=== PATIENT | female | born 1930 | race Caucasian/White ===

== ENCOUNTER 2019-02-07 22:32 | Inpatient (IN) | payer OTHER ==
[~2019-02-07] VITALS: Ht 152.4 cm; Wt 59.5 kg
--- NOTE | 2019-02-08 01:24 | NUR ---
PT ADMITTED PER CART FROM [facility]. PT IS AMBULATORY WITH WALKER ASSIST. CALM AND COOPERATIVE BUT NAUSEATED AND SOME EMESIS. PT CLAIMED THAT THE RIDE MADE HER SICK. FAMILY HERE TO PROVIDE HX AND LIST OF MEDICATIONS. RECENT PROBLEM, IS THAT PT HAS BEEN MORE DEPRESSED AND IMPULSIVE. MEDICATION CHANGE FROM RECENT HOSPITALIZATION AT [facility],DID NOT IMPROVE HER DEPRESSION AND SI. RESIDES AT [facility], WHERE SHE WAS DISCOVERED ATTEMPTING TO JUMP OUT A WINDOW. PT DENIES THAT SHE IS CURRENTLY SUICIDAL, BUT ADMITS SHE HAS THOSE THOUGHTS. TOOK HS MEDS ORDERED AND IS CURRENTLY RESTING QUIETLY.
[2019-02-08] MEDS ORDERED: POTASSIUM GLUC500 MG PO (02:02)
[2019-02-08] MEDS ORDERED: ST. JOSEPH ASPI81 MG (02:06)
[2019-02-08] MEDS ORDERED: LEXAPRO20 MG (02:07)
[2019-02-08] MEDS ORDERED: ARICEPT10 M1 PO (02:07)
[2019-02-08] MEDS ORDERED: HYDROCHLOROTHIA25 M2 (02:08)
[2019-02-08] MEDS ORDERED: OSTEO BI-FLEX1 EAC4 (02:09)
[2019-02-08] MEDS ORDERED: SIMVASTATIN40 MG (02:10)
[2019-02-08] MEDS ORDERED: LOPERAMIDE2 MG (02:14)
[2019-02-08] MEDS ORDERED: CEPACOL SORE T1 EAC8 (02:15)
[2019-02-08] MEDS ORDERED: LORAZEPAM 0.50.5 MG PO (02:17)
[2019-02-08] MEDS ORDERED: BIOFREEZE118 ML TOP (02:18)
[2019-02-08] MEDS ORDERED: MELATONIN1 M1 (02:18)
--- NOTE | 2019-02-08 03:40 | NUR ---
PT HAS SLEPT WELL THROUGH THE NIGHT TO THIS POINT W/O PROBLEM
[2019-02-08 05:36] LABS: POTASSIUM 3.3 mmol/L (3.5-5.1)
[2019-02-08] MEDS ORDERED: CALCIUM ASCORB500 MG (06:32)
[2019-02-08] MEDS ORDERED: PROAIR HFA8.5 GM INH (06:34)
[2019-02-08] MEDS ORDERED: VITAMIN B-121000 MC2 SUBLING (06:38)
[2019-02-08 08:33] LABS: TSH 3.483 uIU/mL (0.358-3.740)
[2019-02-08 10:13] VITALS: BP 140/60
[2019-02-08 10:31] VITALS: BP 140/60
--- NOTE | 2019-02-08 10:55 | NUR ---
THE PATIENT WAS LYING IN BED THIS MORNING BUT WAS UP IN THE DAY ROOM FOR BREAKFAST. SHE WAS PLEASANT AND COOPERATIVE WITH THE [facility]. THE PATIENT WAS COMPLIANT WITH MEDICATIONS. SHE HAS BEEN QUIET AND CALM. SHE AMBULATES WITH A WALKER AND HAS BATH ROOM PRIVILEGES. THE PATIENT WENT BACK TO HER ROOM AFTER BREAKFAST AND WAS IN HER BED RESTING. SHE HAD A EKG THIS MORNING. BREATH SOUNDS WERE DIMINISHED. PATIENT IS WEAK. SHE IS ONE ASSIST. CONTINUE TO MONITOR.
--- NOTE | 2019-02-08 16:48 | EKG ---
[address] [place] [address] ELECTROCARDIOGRAM REPORT Name: KENNETH BABB Room #: [facility] ADM IN M.R.#: [id number] Admission: 02/07/19 Attend Phys: Dc Hernandez DO Discharge: Date of : [birth year] Report #: [id number] THIS REPORT FOR: //name// [facility] Test Date: 2019-02-08 Test Time: 09:56:32 Pat Name: KENNETH BABB Department: Room: [facility] Gender: F Catering Staff Member: JESSI : 1930 Requested By: Dc Hernandez Order Number: [id number] MD: Hamilton Baez Measurements Intervals [place] Rate: 73 P: 43 ND: 135 QRS: 45 QRSD: 84 T: 33 QT: 409 QTc: 451 Interpretive Statements Sinus rhythm No significant abnormality No previous ECG available for comparison Electronically Signed On 02-08-2019 16:48:20 SUPERVISOR AGENCY APPOINTMENTS by Hamilton Baez [email or web address] <ELECTRONICALLY SIGNED> By: Hamilton Baez MD, [facility] 02/08/19 [id number] [id number] Hamilton Baez MD, FACC /EPI
[2019-02-08 20:36] VITALS: BP 135/60
--- NOTE | 2019-02-09 02:27 | NUR ---
ASSUMED CARE OF PATIENT AT 1915, PATIENT IN BED DURING ONE TO ONE ASSESSMENT. SHE APPEARS WITH A BRIGHT AFFECT UPON GREETING PATIENT. SHE WAS OPEN WITH DISCUSSION. SHE DENIED SI HI AND ANY HALLUCINATIONS SHE DID NOT REPORT ANY DEPRESSION 'RIGHT NOW.' SHE DENIED MEDICAL CONCERNS WITH NO S/S OF DISTRESS. NURSING WILL MAINTAIN ALL PRECAUTIONS TO ENSURE SAFETY AT ALL TIMES.
--- NOTE | 2019-02-09 04:21 | NUR ---
PATIENT INCONTINENT X1 AT NIGHT, CHANGED AND CLEANED WITH TELECOMMUNICATIONS NETWORK PLANNER AND RN. PATIENT ABLE TO MAKE NEEDS KNOWN AND THAT SHE WAS COMFORTABLE.
[2019-02-09 07:45] VITALS: BP 179/68
[2019-02-09 08:01] VITALS: BP 179/68
--- NOTE | 2019-02-09 08:30 | NUR ---
PT IN DINNING ROOM AT THIS TIME. PT WANTING TO GO HOME. PT UP WITH WALKER WITH X1 ASSIST. PT GAIT STEADY WITH ASSIST. PT CONT. OF URINE, HAD BRIEF ON.
--- NOTE | 2019-02-09 14:22 | NUR ---
Yesterday, VAL had an impromptu meeting with pt's daughter Selena, and pt's son in law. Selena said she and her are pt's DPOA; she is pt's only child. She said a preciptant to much of her behavior is telling pt that her . Selena said pt will need a new facility due to her behaviors, and wanted assistance in doing so. VAL provided Selena with a Medicare listing of facilities in her area; she would like pt to reside in the [facility]. Selena said pt has been taking lorazepam for over 40 years. She said much of her adverse behaviors started after her Ativan was released by [facility]. They said overall she knows some impairment, but does not acknowledge it. She also knows her is , but can become upset if reminded of that factor. VAL team will continue to follow pt during her stay.
[2019-02-09 20:32] VITALS: BP 141/60
--- NOTE | 2019-02-09 22:03 | H ---
[facility] [address] [place] [address] HISTORY AND PHYSICAL Name: KENNETH BABB Room #: 527B-B ADM IN M.R.#: [id number] Admission: 02/07/19 Attend Phys: Dc Hernandez DO Discharge: Date of : [birth year] Report #: [id number] THIS REPORT FOR: //name// CC: Dc Hernandez [facility] physician/PCP DATE OF SERVICE: 02/07/2019 INPATIENT PSYCHIATRIC EVALUATION ATTENDING PHYSICIAN: Dc Hernandez DO. CODIFIER: Chayo Horan APRN. SOURCES OF INFORMATION: [facility] ER records, interview with the patient, discussion with Selena, the daughter. REASON FOR ADMISSION: Sent from her assisted living for reported self-harmful behavior, attempting to jump out of window. HISTORY OF PRESENT ILLNESS: An 88-year-old female just released from the [facility] last 02/04/2019. She returned to the [facility], where she reportedly threw herself on the floor "had seizure" recovered quickly. She became aggressive with staff stating "just kill me, I want to ." EMS was called. The patient was taken to [facility]. Additional information, her in August of this year. They live together at the assisted living facility, reportedly 7-year marriage. Both had been declining in health status. The facility moved them to a higher care floor level roughly a year ago. The patient reportedly has been attention seeking or even when her was alive. Since he , the aggressiveness and attention seeking has worsened. She was doing better when on Seroquel 25 mg b.i.d. and Ativan 1 mg t.i.d., then reportedly the doctors at [facility] reduced her to 25 mg daily and Ativan to 0.5 mg. The patient has a psychiatric history, cognitive impairment, anxiety, fictitious disorder. PAST MEDICAL HISTORY: Cardiovascular disease, lung disease, hypertension, arthritis, sleep issues. HOME MEDICATIONS: Potassium gluconate 550 mg daily, calcium 1200 mg daily with vitamin D, aspirin 81 mg p.o. daily, hydrochlorothiazide 25 mg p.o. daily, simvastatin 40 mg p.o. daily, Osteo Bi-Flex daily, donepezil 10 mg p.o. daily, escitalopram 20 mg p.o. daily, melatonin 1 mg p.o. at bedtime. MENTAL STATUS EXAMINATION: My student performed a [facility] Mental Status Examination, she scored a less than 10. [address] [address] HISTORY AND PHYSICAL Name: KENNETH BABB Room #: 527B-B [facility] IN M.R.#: [id number] Admission: 02/07/19 Attend Phys: Dc Hernandez DO Discharge: Date of : [birth year] Report #: [id number] Today, on mental status exam, she is a well-developed female wearing glasses, using a walker. Today, though, when I interviewed her at bedside, she was in bed. Apparently, she was more sleepy than usual. She stated her age was 81 and date was 04/13/1932, when in actuality she is 88 and her date of is 1930. Attention limited. Concentration limited. Speech is normal rate. Thought process is linear and goal directed. Thought content: Denies thoughts of suicide or kill herself; however, this contradicts opening the window in her room, pushing out the screen and ran to jump, stating "I want to ." Apparently, she has thought about dying before. Denied homicidal intent or plan. Memory impaired. Insight impaired. Judgment impaired. Fund of knowledge well below average. REVIEW OF SYSTEMS: From the hospitalist's notes: CONSTITUTIONAL: Denies fever or chills. HEENT: She has congestion. RESPIRATORY: Denies cough, orthopnea. CARDIOVASCULAR: Denies chest pain, edema. GASTROINTESTINAL: Denies abdominal pain, constipation. GENITOURINARY: No symptoms reported. MUSCULOSKELETAL: Denies back pain. SKIN: Denies rash. NEUROLOGIC AND PSYCHIATRIC: Denies weakness and dizziness. ENDOCRINE: Denies diabetes mellitus. HEMATOLOGIC AND LYMPHATIC: Denies anemia and blood clots. LABORATORY DATA: BMP was drawn in-house this morning. Sodium 140, potassium 3.3, chloride 102, bicarbonate 30, anion gap 8, BUN 16, creatinine 1.0, estimated GFR 52, glucose 123, calcium 9.0. She received 40 mEq of potassium chloride this morning. Information from her daughter is additional background history, diagnosis of dementia 2016. She recalls this going back 5 years. The daughter is the only child. The patient has been seen and was taken care of by Dr. Vyas at [facility]. FORMULATION: An 88-year-old female admitted for behavioral disturbance. Denying suicidal intent and plan. DIAGNOSES: Major neurocognitive disorder, likely secondary to Alzheimer's disease with behavioral disturbance, numerous comorbidities including hypertension, osteoarthritis, history of peripheral vascular disease namely 15 years ago, left femoral popliteal bypass and right stenting for a long plaque in a right iliac artery. PLAN: Evaluate, stabilize, obtain collateral. I reviewed medications with her [facility] [address] [place] [address] HISTORY AND PHYSICAL Name: KENNETH BABB Room #: 527B-B ADM IN Antoine.#: [id number] Admission: 02/07/19 Attend Phys: Dc Hernandez DO Discharge: Date of : [birth year] Report #: [id number] family. I will discontinue donepezil, change Seroquel to 50 mg twice a day. Continue atorvastatin for now, especially in light of her peripheral vascular disease. She is on vitamin D and multivitamin, Lexapro 10 mg p.o. daily. I believe, I reduced this from 20 mg daily. Vitamin B12 at 2500 mcg p.o. daily. I will go ahead and draw B12 level as she has a history, according to the family, pernicious anemia. Vitamin D 2000 International Units daily, aspirin 81 mg p.o. daily. Keflex 500 mg q. 12 hours, total of 13 doses and now urine culture pending at [facility]. Other routine PRNs, will continue memantine 10 mg p.o. b.i.d. Risk of antipsychotics including the increased risk of and stroke were reviewed. The possible deliriogenic effects of lorazepam were reviewed. STRENGTHS: She is insured, supportive family. WEAKNESSES: Advancing age, history of neurodegenerative disorder. ESTIMATED LENGTH OF STAY: 10-14 days. Time spent on this case is in the 60-minute range including a family meeting today with the daughter and son-in-law. <ELECTRONICALLY SIGNED> By: Dc Hernandez DO 02/09/19 2203 [id number] Dc Hernandez, /nt
--- NOTE | 2019-02-10 00:25 | NUR ---
1909 Report received from day shift nurse and care assumed. Victorina was cooperative with assessment and HS medications. She was notably anxious this evening. She had difficulty emptying her bladder, she wanted to use the toilet asking for help to urinate several times and little result. Bowel sounds active also. No c.o. bladder pain. Bladder scan done at 2320 and PVR = 540cc. Dr. Hernandez notified and ordered Bladder scan ashtyn 6 hours PVR and to straight cath.pt. if >350 cc. Also new order for DC of Seroquel and to start Senna S 2 tabs BID. Straigt cath procedure was done and 570 cc out. She tolerated it well. [facility] was called teodorodavina about finding of her Urine Analysis Culture which was started there 2 days ago from her ER visit. The lab said it is done but he could not provide result, and they would need to call Medical Records department tomorrow after 0700 to get the culture result. Victorina continued being restless with insomnia and was verbally hostile/shouting at staff when she called for help in her room, saying she had to urinate again and explained to her she was just recently straight cathed. Redirections were tried talking with her but she continued shouting for staff then being hostile demanding water to drink as well, due to dry mouth. She was provided water but she still remained verbally hostile with staff and very restless. called at 0030 and ordered Geodon 15 mg. IM x 1 now. Will monitor for effectiveness.
[2019-02-10 09:19] VITALS: BP 125/58
[2019-02-10 12:02] VITALS: BP 125/58
--- NOTE | 2019-02-10 12:09 | NUR ---
704 Report received from overnight shift, patient quiet cooperative. Patient did hygeine and ate breakfast took medication without incidence. Patient wanted to go back and lie down after breakfast. Dr Dempsey came and checked on the patient and stated she looked better then yesterday.
[2019-02-10 19:30] VITALS: BP 124/50
--- NOTE | 2019-02-10 19:41 | NUR ---
UA cultured obtained from [facility]. Results in chart. States less than 10,000 cfu/ml gram positive cocci.
--- NOTE | 2019-02-11 02:56 | NUR ---
Care assumed of patient at 1915: Patient seated in dayroom at start of shift. Patient approached the nurses station several times asking to use the phone to call her daugther at shift change. Patient was approached after shift change and was laying in bed sleeping at that time. Patient pleasant with nursing assessment. Patient denies pain or discomfort. Patient up ambulating with walker with stand by assist. Gait is fairly steady. Patient confused and forgetful at times. Denies SI/HI/AH/VH. No s/s of delusional or paranoia behaviors. Patient received dose of PO abx tx for UTI. Culture received and order for abx d/c'd. Patient was started on new medication and received first dose this evening. Patient has been restless with pacing her room and day room but has not been agitated or irritable. Patient has been up to use the bathroom approximately every 30 minutes this evening. Bladder scan completed after using the bathroom showing 49cc urine. Once nursing assessment completed, patient no longer asked to call her daughter. Patient took HS medication whole without difficulty. Patient has not been resting well this shift due to having the increased frequency of bladder.
[2019-02-11 08:00] VITALS: BP 114/50
--- NOTE | 2019-02-11 16:24 | NUR ---
VAL met with pt's daughter in law Selena who is concerned about placement; she needs a letter from the doctor sent to [facility] at [facility] stating pt is not a harm to herself. The psych doctor created this letter and VAL sent it to Karen with [facility] at [facility]. VAL followed up with Karen who said she did receive the letter. She asked for a tentative d/c date and VAL explained due to med change psych doc will want to monitor pt during the weekend. VAL will not know this information until Thursday. She said that they can take pt Thursday and will try to come visit pt on Thursday. They do have a place for pt at their facility. SW team will continue to follow pt during her stay.
[2019-02-11 19:30] VITALS: BP 112/52
--- NOTE | 2019-02-11 20:31 | NUR ---
Up most of day in dining room without s/o distress. Alert and orientated X 3. Denies SI/HI, pain. Cooperative. Breath sounds clear t/o, bilaterally equal. Color pink with brisk capillary refill and palpable peripheral pulses. Reg HR auscultated. Active bowel sounds over soft, rounded abdomen. Stool on back of pants, changed and placed in washer. Daughter visited today. States she is ready to go home but her family thinks differently.
--- NOTE | 2019-02-12 02:19 | NUR ---
Care assumed of patient at 1915: Patient alert and oriented to person and place. Patient disoriented on current time and situation. Patient was seated in the dayroom speaking with other peers at start of shift. Interacting well with staff and peers. Calm, pleasant and cooperative. Patient was escorted to her room per her request. Patient visualized a couple minutes later sitting on her bed with no clothing. Patient was assisted in putting her clothing back on. A couple minutes later patient removed all her clothing again and was sitting on her bed. Patient got undressed and dressed several times this evening. Patient appeared more disoriented this shift. Patient was tearful and sad at one point. Patient reported "I just don't know what to do". Patient was re-oriented and nurse sat with patient for some time. Patient reports that she wants to see her daughter and to go home. She denies SI/HI/AH/VH. No delusional or paranoia behaviors observed. Patient reports that she has never been depressed until she came here. No aggression or agitation observed. Patient has been incontinent of bladder x2 this shift. Staff assisted with tru care and linen change. Patient frustrated that she is having incontinent episodes and reports that this is new for her. Denies pain or discomfort. Gait appears unsteady this evening. Bed alarm is on, in lowest position. Patient has been having broken sleep this shift.
[2019-02-12 07:00] VITALS: BP 126/59
[2019-02-12 08:00] VITALS: BP 125/54
--- NOTE | 2019-02-12 08:20 | NUR ---
PT UP THIS AM WITH WALKER. PT STEADY WITH WALKER WITH STAND-BY ASSIST. PT HAD NO COMPLAINTS THIS AM. PT DEREK. DIET AND COMPLIANT WITH MEDS.
--- NOTE | 2019-02-12 18:24 | NUR ---
PT HAS ATTENDED GROUPS TODAY. PT WORKED ON A PUZZLE ALSO. PT VERY COMPLIANT WITH CARE AND MEDS.
[2019-02-12 19:43] VITALS: BP 107/40
--- NOTE | 2019-02-12 23:25 | NUR ---
Care assumed of patient at 1915: Patient putting a puzzle together in the dayroom at start of shift. Patient then came to the nurses station reporting she needed to call her daughter. When asked what she needed to tell her daughter, she reported that her daughter does not know where she is and she needs to let her know that she is OK. Patient reassured that daughter is aware with where she is and that she is safe. Patient did not like this answer and was resistant. Patient declined HS snack. Patient retired to bed rather early this evening. Patient was woken to give her HS medication. When patient woke up, she was wondering where she was. Staff explained that she is at the hospital. Patient then asking why. Patient is not aware of the current date. Patient appears more confused and disoriented this shift. Patient incontinent of bladder. Patient assisted with tru care and clothing change. Patient gait appears to be fairly stable this evening. Patient denies SI/HI/AH/VH. No s/s of delusional or paranoia behaviors. Primarily just confusion. Patient continues to rest quietly in bed.
--- NOTE | 2019-02-13 08:37 | NUR ---
Date of Admission: 02/07/19 Date of Activity Therapy Assessment:02/07/2019 Activity Goal:Two groups per day Initial Goal: Pt will participate in two recreation therapy groups per day until discharge to increase self esteem development. Weekly progress towards goal:Did not achieve Group participation level:Minimal Behaviors observed:Pt participate passively in most groups, often given an alternate activity. Pt has been seen sitting in groups but facing away from peers and grocery worker. Pt would benefit from some 1:1 activity time. Plan: Offer 1:1
[2019-02-13 09:04] VITALS: BP 90/57
[2019-02-13 13:47] VITALS: BP 122/39
--- NOTE | 2019-02-13 15:09 | NUR ---
ASSUMED CARE AT 0700 THIS MORNING. PT. IN BED, ASSISTED IN GETTING UP BY STAFF. PT. HAS BEEN CALM AND COOPERATIVE WITH STAFF AND PEERS. TOOK MEDICATIONS WITHOUT DIFFICULTY. ATE MEALS ON THE UNIT. ATTENDED GROUPS. SO S/S SI/HI/AVH TODAY.
--- NOTE | 2019-02-14 00:12 | NUR ---
Care assumed of patient at 1915: Patient sitting in her room at start of shift. Patient isolative and withdrawn this evening. Patient alert and oriented to person only. Confused and forgetful. Patient compliant with nursing assessment. Patient asking about her daughter and her clothing. Patient wondering where she is and why she is not at home. Patient appears flat and depressed. Patient declined HS snack. Took HS medication whole without difficulty. Patient was incontinent of bladder x1. Provided supervision during tru care and brief change. Patient denies pain or discomfort. Denies SI/HI/AH/VH. No s/s of delusional or paranoia behaviors. Spoke with daughter Selena who reported that her [facility] apartment has been cleaned out and all patient's belongings are now at her home. Reporting that she is going to be discharged to another facility. Patient re-assured that her daughter has all of her personal belongings. Patient has been resting in bed quietly most of the shift.
--- NOTE | 2019-02-14 09:56 | NUR ---
Care assumed of pt at 0715- Pt lying in bed with eyes closed, when name called pt opens eyes and states "I am lazy today" then smiles at me. Pt alert and oriented to person only. No complaints with nursing assessment denies pain. Pt denies SI/HI/AVH. Up to bathroom with assist x1. To dining area for breakfast. Took medication whole without difficulty. Ate breakfast then read newspaper while sitting in day room.
--- NOTE | 2019-02-14 14:41 | NUR ---
VAL received a visit from two reps with [facility] ([facility]) to evaluate pt for admission to their facility. After they visited with pt, Herbert (health services director) said that they will admit pt and need an order from the psych doctor for HH services. The psych doctor wrote the order, and VAL handed it to Herbert. VAL spoke with Karen with [facility] who asked for pt's chest x-ray and med list. VAL arranged for pt to be admitted to [facility] at 12pm on 02/15. The number to give report is [phone] option #2 VAL contacted Selena (pts daughter and DPOA) and provided an update. She said she would be unable to transport because she has to get pt's room ready with the things she likes. She also asked VAL to email her a copy of pt's med list to [email or web address]. She said she is okay with 11am d/c on 02/15. VAL faxed documents to [phone]. VAL also emailed Selena a copy of pt's med list. VAL set up transportation with wheelchair for pt with [facility] for 02/15 @11am. [facility] [facility] [address] [place] [address]
--- NOTE | 2019-02-14 18:13 | NUR ---
Assisted pt with brief, Large BM noted. Assisted to day room with assist x1 while using the walker. Sitting on Sofa watching TV. Denies pain at this time.
[2019-02-14 20:00] VITALS: BP 134/59
[2019-02-15 01:12] VITALS: BP 134/59
--- NOTE | 2019-02-15 03:05 | NUR ---
PT OUT EARLY IN SHIFT WITH PEER,WATCHING TV. QUIET AND KEEPING TO HERSELF. AFTER SNACKS, PT TOOK HS MEDS ORDERED. PT HAS SLEPT WELL THROUGH THE NIGHT W/O PROBLEM.
[2019-02-15 07:14] LABS: ABSOLUTE NEUTROPHILS 5.9 thou/uL (1.4-8.2); BASOPHILS 0.4 % (0.0-2.0); EOSINOPHILS 4.1 % (0.0-3.0); HEMATOCRIT 36.2 % (37.0-47.0); LYMPHOCYTES 22.1 % (24.0-44.0); MCH 32.4 pg (26.0-34.0); MCHC 33.3 g/dL (28.0-37.0); MCV 97.2 fL (80.0-100.0); MONOCYTES 8.9 % (1.0-8.0); PLATELET COUNT 218 thou/uL (150-400); POLYS 64.5 % (36.0-66.0); RBC 3.72 mil/uL (4.20-5.00); RDW 14.1 % (10.5-14.5); WBC 9.1 thou/uL (4.0-11.0)
[2019-02-15 07:31] LABS: CALCIUM 9.3 mg/dL (8.5-10.1); CREATININE 0.9 mg/dL (0.6-1.0); MAGNESIUM 2.3 mg/dL (1.8-2.4); POTASSIUM 3.5 mmol/L (3.5-5.1)
[2019-02-15 08:00] VITALS: BP 126/76; BP 188/55
--- NOTE | 2019-02-15 08:00 | NUR ---
PT SLEEPING, EASILY AROUSED VIA VERBAL STIMULI. PT PLEASANT AND TAKING MEDS WITHOUT ANY ISSUES. PT UP WITH WALKER WITH STEADY GAIT. PT GOING TO [facility] TODAY.
[2019-02-15 08:48] VITALS: BP 118/55
[2019-02-15] MEDS ORDERED: LIPITOR 20 MG T20 M1 PO (08:49)
[2019-02-15] MEDS ORDERED: LISINOPRIL2.5 MG PO (08:49)
[2019-02-15] MEDS ORDERED: LORAZEPAM 0.50.5 MG PO (08:55)
[2019-02-15] MEDS ORDERED: RISPERDAL 1 MG T1 MG PO (08:55)
[2019-02-15] MEDS ORDERED: NAMENDA 5 MG TAB5 M1 PO (08:56)
[2019-02-15] MEDS ORDERED: LASIX 20 MG TAB20 MG PO (08:56)
[2019-02-15] MEDS ORDERED: VITAMIN D5000 UNIT PO (08:58)
[2019-02-15 09:01] VITALS: BP 188/55
--- NOTE | 2019-02-15 11:13 | NUR ---
PT LEFT VIA W/C TO [facility]. PT VERY EXCITED TO BE DISCHARGING. PT VERBALY UNDERSTOOD D/C ORDERS.
--- NOTE | 2019-02-15 11:21 | NUR ---
REPORT GIVEN TO GABINO AT [facility].
--- NOTE | 2019-02-17 21:26 | D ---
[facility] [address] [place] [address] DISCHARGE SUMMARY Name: KENNETH BABB Room #: 527B-B DIS IN M.R.#: [id number] Admission: 02/07/19 Attend Phys: Dc Hernandez DO Discharge: 02/15/19 Date of : [birth year] Report #: [id number] THIS REPORT FOR: //name// CC: Dc Hernandez FAM physician/PCP DATE OF SERVICE: 02/15/2019 INPATIENT PSYCHIATRIC DISCHARGE SUMMARY ATTENDING PHYSICIAN: Dc Hernandez DO. [employer] OFFICER: Camryn Naik MD DISCHARGE DIAGNOSES: As follows: Major neurocognitive disorder, likely due to Alzheimer disease with behavioral disturbance, improved. Medical comorbidities include major depression improved, hypokalemia, hypertension, hyperlipidemia, CKD stage 3, peripheral vascular disease, status post distal bypass in left leg and stenting in right leg, coronary artery disease, neuropathy, COPD. DISCHARGE PLAN: Discharging patient to nursing facility to the [facility], [address] [place] [address]. Psychiatric and medical care to be performed by that facility. DISCHARGE DIET: Regular. DISCHARGE MEDICATIONS: Atorvastatin 20 mg p.o. daily for hyperlipidemia, lisinopril 2.5 mg p.o. daily for hypertension, risperidone 1 mg p.o. b.i.d. for impulse control, lorazepam 0.5 mg p.o. b.i.d. for anxiety requested by DPOA, memantine 10 mg p.o. b.i.d. for major neurocognitive disorder, furosemide 20 mg p.o. daily for hypertension, cholecalciferol 2000 International Units p.o. daily for supplementation, aspirin 81 mg p.o. daily for cardioprotection, Lexapro 20 mg p.o. daily for depression, calcium ascorbate 1300 mg p.o. daily for supplementation, albuterol sulfate 2 puffs inhaled q. 4 hours p.r.n. for wheezing, cyanocobalamin 2500 mcg sublingual daily for supplementation. LABORATORY DATA: From this admission of note, CBC shows white count 9.1, hemoglobin 26, H and H 12.0 and 36.2, platelets 218. Chemistries this admission from 02/15/2019, sodium 143, potassium 3.5, chloride 107, bicarbonate 27, anion gap 9, BUN 24, creatinine 0.9, estimated GFR 59, glucose 110, calcium 9.3, magnesium 2.3, B12 level 780, and TSH 3.483. REASON FOR ADMISSION: Back on 02/07/2019, an 88-year-old female. She had just been released from [facility], [place] [address] DISCHARGE SUMMARY Name: KENNETH BABB Room #: 527B-B DIS IN M.R.#: [id number] Admission: 02/07/19 Attend Phys: Dc Hernandez, Discharge: 02/15/19 Date of : [birth year] Report #: [id number] Apparently, she threw herself on the floor, was aggressive with staff, and sent to the [facility] ER. HOSPITAL COURSE: The patient was admitted to [facility]. I elected to go ahead and put her on risperidone for impulse control. The patient had poor insight into her dementia and the patient's SLUMS was less than 10/30. The patient's EKG this admission, QTC 451, QT 409, and rate 73, sinus rhythm, performed on 02/08/2019. She improved during the course of admission. She had been adjusted in the planned assisted living in [place], so therefore this was a new placement was required, which ate up some additional hospital time. At the time of the time of discharge, she was not suicidal or homicidal, felt to be ready for less restrictive setting. PHYSICAL EXAMINATION: VITAL SIGNS: On the day of discharge, temperature 35.9, pulse 69, respirations 18, BP 119/55, O2 sat 93%. MUSCULOSKELETAL: Uses a walker. MENTAL STATUS EXAMINATION: This is a well-developed female wearing glasses, appearing stated age. Attention fair. Concentration limited. Speech is normal rate, volume and tone. Thought process linear and goal directed. Thought content focused on discharge. No psychomotor agitation, no psychomotor retardation. Mood and affect congruent and euthymic. Denied SI or HI. Denied hopelessness, helplessness. Denied homicidal intent or plan, suicidal intent or plan. Denied auditory, visual, or tactile hallucinations. Insight limited. Judgment limited. Fund of knowledge below average. Memory impaired. PROGNOSIS: For this patient is guarded given her age of 88, having a major neurodegenerative disorder and accompaning medical comorbidities. <ELECTRONICALLY SIGNED> By: Dc Hernandez DO 02/17/19 [id number] Dc Hernandez, /nt
== END 2019-02-15 11:13 | DRG 57 ==
LOC: SBH 22:32
PROVIDERS: Internal Medicine; ADMIT Psychiatry & Neurology Psychiatry
DX: G30.9 Alzheimer's disease, unspecified (principal); F01.51 Vascular dementia, unspecified severity, with behavioral disturbance; F02.81 Dementia in other diseases classified elsewhere, unspecified severity, with behavioral disturbance; R45.851 Suicidal ideations; N39.0 Urinary tract infection, site not specified; F32.9 Major depressive disorder, single episode, unspecified; E87.6 Hypokalemia; I12.9 Hypertensive chronic kidney disease with stage 1 through stage 4 chronic kidney disease, or unspecified chronic kidney disease; N18.3 Chronic kidney disease, stage 3 (moderate); E78.5 Hyperlipidemia, unspecified; I73.9 Peripheral vascular disease, unspecified; I25.10 Atherosclerotic heart disease of native coronary artery without angina pectoris; J44.9 Chronic obstructive pulmonary disease, unspecified; G62.9 Polyneuropathy, unspecified; F41.9 Anxiety disorder, unspecified; M19.90 Unspecified osteoarthritis, unspecified site; Z95.820 Peripheral vascular angioplasty status with implants and grafts; Z79.82 Long term (current) use of aspirin; Z79.899 Other long term (current) drug therapy; Z87.891 Personal history of nicotine dependence
CPT/HCPCS: 10880